=== PATIENT | male | born 1970 ===

== ENCOUNTER 2018-01-28 12:35 | Emergency (ER) | payer OTHER ==
[2018-01-28 12:45] VITALS: BP 153/101; PULSE 100; RESP 18; TEMP 98.2; O2SAT 99
--- NOTE | 2018-01-28 13:20 | ED PDOC ---
HPI: Male Pain Time Seen by Provider: 01/28/18 13:18 Chief Complaint (Nursing): Groin Pain Chief Complaint (Provider): INGUINAL PAIN History Per: Patient (47 Y/O MALE H/O INGUINAL HERNIA REPAIR INTERMITTENT X 1 YEAR HERE FOR EVALUATION OF ONGOING PAIN SINCE SURGERY. STATES INITIALLY INFORMED BY SURGEON IT WAS RELATED TO SITE. NOTES PAIN WITH MOVEMENT IN DIFFERENT POSITIONS. DENIES ANY FEVERS/CHILLS. UNABLE TO F/U WITH HIS PREVIOUS SURGEON DUE TO RELOCATION TO [place] FROM [place]. REQUEST STUDIES FOR EVALUATION OF HERNIA. ) Past Medical History Reviewed: Historical Data, Nursing Documentation, Vital Signs Vital Signs: Last Vital Signs Temp 98.2 F 01/28/18 12:41 Pulse 100 H 01/28/18 12:41 Resp 18 01/28/18 12:41 BP 153/101 H 01/28/18 12:41 Pulse Ox 99 01/28/18 12:41 - Family History Family History: States: No Known Family Hx - Home Medications Home Medications: Ambulatory Orders Medication Instructions Recorded Ibuprofen [Motrin] 600 mg PO Q8 PRN #21 tab 01/28/18 - Allergies Allergies/Adverse Reactions: Allergies Allergy/AdvReac Type Severity Reaction Status Date / Time No Known Allergies Allergy Verified 01/28/18 12:41 Review of Systems ROS Statement: Except As Marked, All Systems Reviewed And Found Negative Physical Exam - Reviewed Nursing Documentation Reviewed: Yes Vital Signs Reviewed: Yes - Physical Exam Appears: Positive for: Well, Non-toxic, No Acute Distress Head Exam: Positive for: ATRAUMATIC, NORMAL INSPECTION, NORMOCEPHALIC Skin: Positive for: Normal Color, Warm, DRY Eye Exam: Positive for: EOMI, Normal appearance, PERRL ENT: Positive for: Normal ENT Inspection Neck: Positive for: Normal, Painless ROM Cardiovascular/Chest: Positive for: Regular Rate, Rhythm Respiratory: Positive for: CNT, Normal Breath Sounds Gastrointestinal/Abdominal: Positive for: Normal Exam, Soft Male Genital Exam: Positive for: other (MINIMAL TENDERNESS NOTED BY SCAR FOR INGUINAL HERNIA. NO SIGNS OF ERYTHEMA/SWELLING.) Back: Positive for: Normal Inspection Extremity: Positive for: Normal ROM Neurologic/Psych: Positive for: Alert, Oriented - Laboratory Results Urine dip results: Negative for: Leukocyte Esterase, Blood, Nitrate, Ketones, Glucose, Bilirubin - ECG O2 Sat by Pulse Oximetry: 99 Disposition - Clinical Impression Clinical Impression: Left inguinal pain, Pain in surgical scar - Patient ED Disposition Is Patient to be Admitted: No - Disposition Referrals: Ruthie Wells MD [Staff Provider] - Disposition: Routine/Home Disposition Time: 13:23 Condition: FAIR Prescriptions: Ibuprofen [Motrin] 600 mg PO Q8 PRN #21 tab PRN Reason: Pain, Moderate (4-7) Instructions: Inguinal and Femoral (Groin) Hernias, Scars and How to Care for Them Print Language: MALAY
== END 2018-01-28 15:05 | disposition home or self-care (01) ==
LOC: H.ER 12:35
DX: K40.90 Unilateral inguinal hernia, without obstruction or gangrene, not specified as recurrent (principal)